=== PATIENT | male | born 1995 | race Caucasian/White ===

== ENCOUNTER 2018-05-16 01:42 | Emergency (ER) | payer SELFPAY ==
[2018-05-16] MEDS: KETOROLAC 60 MG INJ IM (02:43)
== END 2018-05-16 03:39 | disposition home or self-care (01) ==
LOC: FTE 03:39
DX: S39.012A Strain of muscle, fascia and tendon of lower back, initial encounter (principal); S80.01XA Contusion of right knee, initial encounter; S70.01XA Contusion of right hip, initial encounter; V49.50XA Passenger injured in collision with unspecified motor vehicles in traffic accident, initial encounter
CPT/HCPCS: 73510; 73562; 96372; 99284-25